=== PATIENT | female | born 1970 | race Caucasian/White ===

== ENCOUNTER 2020-07-13 16:53 | Emergency (ER) | payer OTHER ==
[2020-07-13 17:49] LABS: HEMOGLOBIN 15.2 gm/dl (12.3-15.3); RED BLOOD COUNT 5.07 M/UL (4.00-5.10); WHITE BLOOD COUNT 17.9 K/UL (4.5-11.0)
[2020-07-13 18:12] LABS: BUN/CREATININE RATIO 24 (0-10)
[2020-07-13] MEDS ORDERED: OMNICEF 300 MG300 MG PO (19:11)
== END 2020-07-13 20:28 | disposition home or self-care (01) ==
LOC: ER1 16:53
PROVIDERS: Physician Assistant Medical
DX: R06.02 Shortness of breath (principal); R53.83 Other fatigue; R51.9 Headache, unspecified; J44.9 Chronic obstructive pulmonary disease, unspecified; Z86.16 Personal history of COVID-19; I10 Essential (primary) hypertension; E78.5 Hyperlipidemia, unspecified; Z20.822 Contact with and (suspected) exposure to COVID-19; Z01.84 Encounter for antibody response examination
CPT/HCPCS: 36415; 71046; 80053; 80061; 83605; 84443; 84484; 85025; 85027; 85379; 86769; 93005; 96365; 99285; J0696

== ENCOUNTER → 2020-07-13 | Outpatient (CLI) | payer OTHER ==
[~2020-07-13] MED LIST: OMNICEF 300 MG300 MG PO
[2020-07-13 11:49] LABS: HEMOGLOBIN 15.2 gm/dl (12.3-15.3); RED BLOOD COUNT 5.08 M/UL (4.00-5.10); WHITE BLOOD COUNT 16.1 K/UL (4.5-11.0)
[2020-07-13 12:15] LABS: BUN/CREATININE RATIO 21 (0-10)
[2020-07-15 07:12] LABS: SARS COV-2 IGG AB Positive (Negative)
[2020-07-15 14:14] LABS: SARS COV-2 IGM AB Positive (Negative)
[2020-07-16 13:10] LABS: SARS COV-2 IGA AB Negative (Negative)
== END ==
LOC: LAB 10:52
PROVIDERS: Nurse Practitioner Family
DX: I10 Essential (primary) hypertension (principal); E78.5 Hyperlipidemia, unspecified; R53.83 Other fatigue; Z20.822 Contact with and (suspected) exposure to COVID-19; Z01.84 Encounter for antibody response examination
CPT/HCPCS: 36415; 71046; 80053; 80061; 84443; 85027; 86769

== ENCOUNTER 2020-07-15 02:30 | Emergency (ER) | payer OTHER ==
[2020-07-15 03:32] LABS: HEMOGLOBIN 15.1 gm/dl (12.3-15.3); RED BLOOD COUNT 5.04 M/UL (4.00-5.10); WHITE BLOOD COUNT 13.1 K/UL (4.5-11.0)
[2020-07-15 04:01] LABS: BUN/CREATININE RATIO 24 (0-10)
== END 2020-07-15 05:00 | disposition home or self-care (01) ==
LOC: ER1 02:30
PROVIDERS: Emergency Medicine
DX: R06.02 Shortness of breath (principal); J44.9 Chronic obstructive pulmonary disease, unspecified; Z86.16 Personal history of COVID-19
CPT/HCPCS: 36415; 71045; 80053; 85025; 93005; 99285

== ENCOUNTER → 2020-11-20 | Outpatient (CLI) | payer OTHER ==
[2020-11-20 11:46] LABS: HEMOGLOBIN 14.2 gm/dl (12.3-15.3); RED BLOOD COUNT 4.87 M/UL (4.00-5.10); WHITE BLOOD COUNT 9.6 K/UL (4.5-11.0)
[2020-11-20 11:56] LABS: BUN/CREATININE RATIO 17 (0-10)
== END ==
LOC: ECHO 11-17 10:00
PROVIDERS: Nurse Practitioner Family
DX: R06.02 Shortness of breath (principal); I10 Essential (primary) hypertension; E78.5 Hyperlipidemia, unspecified; E66.9 Obesity, unspecified; R53.83 Other fatigue; Z86.16 Personal history of COVID-19; I07.1 Rheumatic tricuspid insufficiency
CPT/HCPCS: ECHO; 36415; 71046; 80053; 80061; 84443; 85025; 93306

== ENCOUNTER 2021-05-30 06:01 | Emergency (ER) | payer OTHER ==
[2021-05-30 07:47] LABS: HEMOGLOBIN 14.2 gm/dl (12.3-15.3); RED BLOOD COUNT 4.97 M/UL (4.00-5.10); WHITE BLOOD COUNT 11.1 K/UL (4.5-11.0)
[2021-05-30 07:52] LABS: BUN/CREATININE RATIO 19 (0-10)
== END 2021-05-30 10:04 | disposition home or self-care (01) ==
LOC: ER1 06:01
PROVIDERS: Physician Assistant
DX: J40 Bronchitis, not specified as acute or chronic (principal); Z20.822 Contact with and (suspected) exposure to COVID-19; Z90.49 Acquired absence of other specified parts of digestive tract
CPT/HCPCS: 36600; 71045; 80053; 82803; 85025; 99283; U0002

== ENCOUNTER → 2021-10-13 | Outpatient (CLI) | payer OTHER | LOC: RT 11:01 | DX: I10 Essential (primary) hypertension (principal); R60.9 Edema, unspecified; R06.02 Shortness of breath | CPT/HCPCS: 93270 ==

== ENCOUNTER 2021-11-09 16:19 | Emergency (ER) | payer OTHER ==
[2021-11-09 17:13] LABS: HEMOGLOBIN 15.9 gm/dl (12.3-15.3); RED BLOOD COUNT 5.41 M/UL (4.00-5.10); WHITE BLOOD COUNT 11.2 K/UL (4.5-11.0)
[2021-11-09 17:36] LABS: BUN/CREATININE RATIO 17 (0-10)
== END 2021-11-09 23:15 | disposition home or self-care (01) ==
LOC: ER1 16:19
DX: R06.02 Shortness of breath (principal); R20.2 Paresthesia of skin
CPT/HCPCS: 70450; 71046; 80053; 82550; 82553; 84484; 85025; 93005; 99285